=== PATIENT | female | born 1950 | race Caucasian/White ===

== ENCOUNTER → 2020-01-02 10:29 | Outpatient (CLI) | payer MEDICARE, SELFPAY ==
--- NOTE | 2020-01-02 | MR_ITS ---
PROCEDURE: MR LUMBAR SPINE WO CON CLINICAL INDICATION: SPINAL STENOSIS Bilateral hip and leg pain worse on the left COMPARISON: No exams were available for comparison TECHNIQUE: Standard multiplanar multiecho sequences are performed without contrast. 3-D MIP and myelographic images are also rendered and reviewed FINDINGS: There is normal alignment. There is mild lumbar scoliosis convex left. Spinal cord ends at the L1 level. T11-T12: Mild degenerative disc disease. T12-L1: Unremarkable L1-L2: Mild degenerative disc disease. L2-L3: Mild degenerative disc disease with minimal bulging disc. L3-L4: Mild degenerative disc disease with minimal bulging disc along with facet ligamentum hypertrophy with mild bilateral lateral recess and foraminal narrowing. L4-5: Bulging disc with moderate facet ligamentum hypertrophy with moderate bilateral lateral recess narrowing and mild right and qtlm-ze-zrheruys left foraminal narrowing. 2 mm anterolisthesis of L4. There is canal stenosis at this level. L5-S1: Degenerative disc disease with mild bulging disc along with moderate facet and ligamentum hypertrophy. There is moderate to severe left-sided foraminal narrowing and wzwk-es-uhgnzgmi right foraminal narrowing. There is transverse narrowing of the canal with the canal measuring 8 mm in width. No extruded herniated disc evident. IMPRESSION: Multilevel lumbar spondylosis with bulging disc and facet and ligamentum hypertrophy with lateral recess and foraminal narrowing as well as narrowing of the canal at L4-5 and L5-S1. Please see above for detailed description at each level. Dictated by: Vikas Newman MD 01/04/2020 08:59 Vikas Newman MD in [place] 01/04/2020 09:00
== END ==
PROVIDERS: PCP Family Medicine; Visit Provider Family Medicine
DX: M48.062 Spinal stenosis, lumbar region with neurogenic claudication (principal)
CPT/HCPCS: 72148; 76376

== ENCOUNTER → 2020-01-31 10:19 | Outpatient (POV) | payer MEDICARE, SELFPAY ==
[2020-01-31 10:46] VITALS: BP 125/88; PULSE 74; RESP 18; TEMP 36.8; O2SAT 98; BMI 26.2
--- NOTE | 2020-01-31 11:19 | HMH.PMCON ---
Assessment and Plan (1) Degenerative joint disease (DJD) of lumbar spine Status: Chronic Category: Medical Code(s): M47.816 - Spondylosis without myelopathy or radiculopathy, lumbar region (2) Lumbar radiculopathy Status: Chronic Category: Medical Code(s): M54.16 - Radiculopathy, lumbar region (3) Spinal stenosis Status: Chronic Category: Medical Code(s): M48.00 - Spinal stenosis, site unspecified (4) Neurogenic claudication Status: Chronic Category: Medical Code(s): M48.062 - Spinal stenosis, lumbar region with neurogenic claudication - Assessment and plan all Dx Assessment and Plan for all problems:: We will schedule the patient for a lumbar epidural steroid injection at L4-L5. She is on Plavix therapy prescribed per Dr. Jaime. We will seek approval for her to hold her Plavix. Patient may be a candidate for the mild procedure. She does have spinal stenosis with neurogenic claudication symptoms. We will also perform a epidurogram at the time of her epidural steroid injection. We will see her back afterwards to reassess her symptoms. Risks and benefits of the procedure have been explained to the patient. Patient would like to proceed with the procedure. She has been instructed to contact clinic if she has any concerns before next appointment. The patient and I specifically discussed risk factors for COVID19. These risks include, but are not limited to age greater than 60, heart or lung disease, diabetes, immunosuppression, and travel. We also discussed NSAIDs may worsen COVID19 infection or symptoms. Patient should not use NSAIDs to treat COVID19 signs or symptoms. Patient was also informed that any type of corticosteroid of any form (oral or injection) will decrease the patient's immune system response and may increase the likelihood of COVID19 infection [address] symptoms[address]. Barcenas has reviewed this note and agrees with this plan of care. This note was dictated using voice recognition software and make contain errors or omissions. HPI - Data of Consult Patient: new to practice Consult date: 01/31/20 Requesting Physician: Amanda Juarez APRN Primary Care Provider: Star Molina MD - Consult Narrative Reason for consult: Low back pain, bilateral leg pain History of present illness: Ms. Villasenor is a 69 year old female who presents today for consultation for chronic low back pain with bilateral lower extremity pain. Patient says she has had this pain for many years. She says that many years ago she was told that she had a fractured coccyx. She says that she has had difficulty sitting for many years. She says her pain, however, is now starting to worsen into her lower extremities. Patient is having numbness and tingling in her lower extremities as well. She says that she has a left foot drop at times to the point she is unable to lift her leg. She is having balance issues along with falls. Patient says that the pain starts in her low back with radiation into her legs. She says that leaning forward does not always give her relief, however. She does have recent imaging of her lumbar spine. She is also on Plavix for a history of 2 cardiac stents approximately 3 years ago. Patient says she has tried physical therapy and did not get any relief. She is unable to take anti-inflammatories because of her anticoagulation therapy. She does continue with home stretching program. Patient has had injections many years ago that did give her short-term relief but she is not sure what type of injection she received. She rates her pain a 6 out of 10. Patient's pain is worse when she is standing and walking or with any type of movement. CC: Amanda Juarez APRN [facility] History I have reviewed the patient's past medical history: Yes Medical History: Reports:: Myocardial Infarction Denies:: Cancer, Diabetes Mellitus Type 1, Diabetes Mellitus Type 2, MRSA *Have you ever received a pneumonia vaccine?:
--- NOTE | 2020-02-05 12:35 | PC.NURSE ---
PT WAS NOTIFIED OF PERMISSION OBTAINED FROM DR PEREZ TO HOLD PLAVIX PRIOR TO INJECTIONS. PT WAS INTSTRUCTED TO STOP HER PLAVIX Feb PRIOR TO HER LESI ON Feb. PT V/U.
== END ==
PROVIDERS: PCP Family Medicine; Visit Provider Clinical Nurse Specialist Family Health
DX: M47.896 Other spondylosis, lumbar region (principal); M54.16 Radiculopathy, lumbar region; M48.062 Spinal stenosis, lumbar region with neurogenic claudication
CPT/HCPCS: 99202

== ENCOUNTER 2020-02-15 10:25 | Day surgery (SDC) | payer MEDICARE, SELFPAY ==
[2020-02-15 11:42] VITALS: BP 179/72; PULSE 62; RESP 18; TEMP 36.3; O2SAT 98; BMI 26.2
[2020-02-15 12:10] VITALS: BP 133/85; PULSE 85; RESP 18; O2SAT 98
[2020-02-15 12:12] VITALS: BP 135/85; PULSE 89; RESP 18; O2SAT 98
--- NOTE | 2020-02-15 12:14 | P.PCN_ITS ---
- Procedure Date: 02/15/20 Time: 12:14 Anesthesiologist:: Sylvester Barcenas MD Complications:: None Pre-procedure Diagnosis:: Interim disc disease of lumbar spine with lumbar radiculopathy symptoms with spinal stenosis and neurogenic claudication symptoms Post-procedure Diagnosis:: Same Indications for Procedure:: This patient is a pleasant 69-year-old white female who we are treating for low back pain with lumbar radiculopathy symptoms and lumbar spinal stenosis with neurogenic claudication symptoms. She has significant ligamentum flavum hypertrophy at L3-L4 and L4-L5. This is based on MRI. We will do a lumbar epidural steroid injection with epidurogram to assess levels of stenosis and candidacy for minimally invasive lumbar decompression. Procedure Details:: Lumbar epidural steroid injection under fluoroscopy Informed consent was obtained and the risk and benefits of the procedure was explained to the patient. The patient was taken to the procedure room. The patient was placed prone on the procedure table. The patient was prepped and draped in sterile fashion. C-arm fluoroscopy was used to view the lumbar spine. Skin and subcutaneous tissues were anesthetized using lidocaine. I placed an 18-gauge epidural needle and advanced into the L4-L5 interspace using fluoroscopic guidance and [id number] to air. After confirmation of nee dle placement in the epidural space with dye I injected 2 mL of lidocaine 1.5% with Depo-Medrol 80 mg. Patient tolerated the procedure well with no complications. Plan and Disposition:: Stone epidurogram she does have significant stenosis at L3-L4 and L4-L5 bilaterally. We will plan on minimally invasive lumbar decompression at L3-L4 and L4-5 bilaterally. She will need to be off of her Plavix for at least 7 days prior to this procedure.
[2020-02-15 12:26] VITALS: BP 179/79; PULSE 62; RESP 18; O2SAT 98
--- NOTE | 2020-02-15 16:04 | PC.NURSE ---
LATE ENTRY: 1220 CALLED MD BACK TO PROCEDURE ROOM TO ASSESS PT. PT C/O DIZZINESS, HEADACHE, AND NAUSEA. PT WAS VISIBLY SWEATING AND UPSET. VS 157/91, HR 88, 98% 02. ORDERS FOR 1 LITER LACTATED RINGERS, 4MG ZOFRAN IV, AND FIORICET TO BE GIVEN NOW.R/V.
== END 2020-02-15 12:28 | disposition home or self-care (01) ==
LOC: SC.PAINP 10:27
PROVIDERS: PCP Family Medicine; Visit Provider Anesthesiology
DX: M51.16 Intervertebral disc disorders with radiculopathy, lumbar region (principal); M48.062 Spinal stenosis, lumbar region with neurogenic claudication; I10 Essential (primary) hypertension; I25.2 Old myocardial infarction; E03.9 Hypothyroidism, unspecified; Z88.8 Allergy status to other drugs, medicaments and biological substances; Z79.899 Other long term (current) drug therapy
CPT/HCPCS: 62323; J1040; Q9966

== ENCOUNTER → 2022-02-26 01:00 | Outpatient (CLI) | payer MEDICARE, SELFPAY ==
[2022-02-26 18:42] LABS: Basophils # 0.1 K/mm3 (0-0.2); Basophils % 0.5 % (0.1-2.0); Eosinophils % 0.3 % (0.1-12.0); Hematocrit 42.4 % (37.0-47.0); Hemoglobin 14.3 g/dL (12.2-16.2); Lymphocytes # 3.5 K/mm3 (0.7-4.5); Lymphocytes % 29.2 % (10-50); Mean Corpuscular HGB Conc 33.7 g/dL (31.8-35.4); Mean Corpuscular Hemoglobin 32.3 pg (27.0-31.2); Mean Corpuscular Volume 95.9 fl (81-99); Mean Platelet Volume 9.7 fl (7.4-10.4); Monocytes # 0.7 K/mm3 (0.1-1.0); Neutrophils # 7.6 K/mm3 (1.8-7.8); Platelet Count 405 K/mm3 (142-424); Red Blood Count 4.42 M/mm3 (4.20-5.40); Red Cell Distribution Width 14.4 % (11.5-17.5); White Blood Count 11.8 K/mm3 (4.8-10.8)
[2022-02-26 19:04] LABS: Alanine Aminotransferase 26 U/L (12-78); Albumin Level 4.1 g/dl (3.5-5.0); Albumin/Globulin Ratio 1.7 (1.1-1.8); Alkaline Phosphatase 103 U/L (38-126); Aspartate Amino Transferase 26 U/L (14-36); Bilirubin,Total 0.7 mg/dl (0.2-1.3); Blood Urea Nitrogen 15 mg/dl (7-17); Calcium 9.1 mg/dl (8.4-10.2); Carbon Dioxide 29 mmol/L (22.0-30.0); Chloride 108 mmol/L (98-107); Estimated Glomerular Filt Rate 61 ml/min (>60); GFR (African American) 74 ML/MIN (>60); Globulin 2.4 g/dL (1.3-3.2); Glucose 94 mg/dl (74-100); Sodium 144 mmol/L (136-145); Total Protein,Serum 6.5 g/dl (6.3-8.2)
[2022-02-26 19:33] LABS: Thyroid Stimulating Hormone < 0.02 uIU/mL (0.465-4.68)
== END ==
PROVIDERS: PCP Family Medicine; Visit Provider Family Medicine
DX: E03.9 Hypothyroidism, unspecified (principal); M47.816 Spondylosis without myelopathy or radiculopathy, lumbar region; H65.00 Acute serous otitis media, unspecified ear
CPT/HCPCS: 80053; 84443; 85025

== ENCOUNTER 2023-04-12 18:55 | Outpatient (CLI) | payer MEDICARE, SELFPAY ==
[2023-04-12 17:49] LABS: Basophils # 0.1 K/mm3 (0-0.2); Basophils % 0.6 % (0.1-2.0); Eosinophils # 0.1 K/mm3 (0.0-0.4); Eosinophils % 0.7 % (0.1-12.0); Hematocrit 49.7 % (37.0-47.0); Hemoglobin 16.1 g/dL (12.2-16.2); Lymphocytes # 3.4 K/mm3 (0.7-4.5); Mean Corpuscular HGB Conc 32.4 g/dL (31.8-35.4); Mean Corpuscular Hemoglobin 33.8 pg (27.0-31.2); Mean Corpuscular Volume 104.3 fl (81-99); Mean Platelet Volume 8.2 fl (7.4-10.4); Monocytes # 0.5 K/mm3 (0.1-1.0); Monocytes % 5.9 % (1.7-9.3); Neutrophils # 5.1 K/mm3 (1.8-7.8); Neutrophils % 55.9 % (37.0-80.0); Platelet Count 282 K/mm3 (142-424); Red Blood Count 4.76 M/mm3 (4.20-5.40); Red Cell Distribution Width 15.3 % (11.5-17.5); White Blood Count 9.2 K/mm3 (4.8-10.8)
[2023-04-12 17:54] LABS: Alanine Aminotransferase 19 U/L (12-78); Albumin Level 4.2 g/dl (3.5-5.0); Albumin/Globulin Ratio 1.6 (1.1-1.8); Alkaline Phosphatase 115 U/L (38-126); Anion Gap 10.1 mEq/L (5-15); Aspartate Amino Transferase 25 U/L (14-36); Bilirubin,Total 0.5 mg/dl (0.2-1.3); Blood Urea Nitrogen 10 mg/dl (7-17); Calcium 9.3 mg/dl (8.4-10.2); Carbon Dioxide 26 mmol/L (22.0-30.0); Chloride 107 mmol/L (98-107); Estimated Glomerular Filt Rate 61 ml/min (>60); GFR (African American) 74 ML/MIN (>60); Globulin 2.6 g/dL (1.3-3.2); Glucose 99 mg/dl (74-100); Potassium 4.1 mmoL/L (3.5-5.1); Sodium 139 mmol/L (136-145); Total Protein,Serum 6.8 g/dl (6.3-8.2)
[2023-04-12 18:24] LABS: Thyroid Stimulating Hormone 7.72 uIU/mL (0.465-4.68)
[2023-04-12 18:43] LABS: Vitamin B12 365 pg/mL (239-931)
== END 2023-04-12 23:59 ==
LOC: LAB.DROPOF 18:55
PROVIDERS: PCP Family Medicine; Visit Provider Family Medicine
DX: I10 Essential (primary) hypertension; J31.0 Chronic rhinitis; R53.83 Other fatigue; E03.8 Other specified hypothyroidism; Z79.899 Other long term (current) drug therapy
CPT/HCPCS: 80053; 82607; 84443; 85025

== ENCOUNTER 2023-08-30 11:36 | Outpatient (CLI) | payer MEDICARE, SELFPAY ==
[2023-08-30 18:36] LABS: Chloride 104 mmol/L (98-107); Sodium 136 mmol/L (136-145)
[2023-08-30 18:37] LABS: Potassium 4.1 mmoL/L (3.5-5.1)
[2023-08-30 18:39] LABS: Blood Urea Nitrogen 11 mg/dl (7-17); Estimated Glomerular Filt Rate 61 ml/min (>60); GFR (African American) 74 ML/MIN (>60)
[2023-08-30 18:40] LABS: Anion Gap 10.1 mEq/L (5-15); Calcium 9.1 mg/dl (8.4-10.2); Carbon Dioxide 26 mmol/L (22.0-30.0); Glucose 94 mg/dl (74-100)
[2023-08-30 19:08] LABS: Thyroid Stimulating Hormone 2.52 uIU/mL (0.465-4.68)
== END 2023-08-30 23:59 | disposition home or self-care (01) ==
LOC: LAB.DROPOF 08-31 11:37
PROVIDERS: PCP Family Medicine; Visit Provider Family Medicine
DX: E03.9 Hypothyroidism, unspecified (principal); I10 Essential (primary) hypertension; R30.0 Dysuria; F17.210 Nicotine dependence, cigarettes, uncomplicated
CPT/HCPCS: 80048; 84443; 87086

== ENCOUNTER 2024-03-05 16:38 | Outpatient (CLI) | payer MEDICARE, SELFPAY ==
[2024-03-05 16:01] LABS: Microscopic,Cath URINE MICROSCOPIC (MICROSCOPIC)
[2024-03-05 16:47] LABS: Appearance,Urine/Cath SL CLOUDY (Clear); Bilirubin,Cath Negative (Negative); Blood, Urine/Cath TRACE-I (Negative); Color,Urine/Cath YELLOW (Yellow); Glucose,Urine/Cath (UA) Negative (Negative); Ketones,Urine/Cath Negative (Negative); Leukocyte Esterase,Cath 3+ (Negative); Nitrate,Cath Negative (Negative); Protein,Urine/Cath Negative (Negative); Urobilinogen,Cath 0.2 EU/dl (0.2)
[2024-03-05 17:58] LABS: Bacteria,Urine/Cath 2+ /lpf; WBC,Urine/Cath 20-50 #/hpf (0-3)
== END 2024-03-05 23:59 | disposition home or self-care (01) ==
LOC: LAB.DROPOF 16:38
PROVIDERS: PCP Urology; Visit Provider Urology
DX: N39.0 Urinary tract infection, site not specified (principal); N95.2 Postmenopausal atrophic vaginitis
CPT/HCPCS: 81001; 87086; 87088; 87186; 87801

== ENCOUNTER 2024-08-14 12:00 | Outpatient (CLI) | payer MEDICARE, SELFPAY ==
[2024-08-14 20:28] LABS: Alanine Aminotransferase 12 U/L (12-78); Albumin Level 4.4 g/dl (3.5-5.0); Albumin/Globulin Ratio 1.6 (1.1-1.8); Alkaline Phosphatase 99 U/L (38-126); Anion Gap 16.2 mEq/L (5-15); Aspartate Amino Transferase 22 U/L (14-36); Bilirubin,Total 0.5 mg/dl (0.2-1.3); Blood Urea Nitrogen 18 mg/dl (7-17); Calcium 9.6 mg/dl (8.4-10.2); Carbon Dioxide 26 mmol/L (22.0-30.0); Chloride 99 mmol/L (98-107); Cholesterol 175 mg/dl (140-200); Creatinine,Serum 1.10 mg/dl (0.52-1.04); Estimated Glomerular Filt Rate 48 ml/min (>60); GFR (African American) 59 ML/MIN (>60); Globulin 2.8 g/dL (1.3-3.2); Glucose 97 mg/dl (74-100); HDL Cholesterol 35 mg/dl (40-60); Potassium 4.2 mmoL/L (3.5-5.1); Sodium 137 mmol/L (136-145); Total Protein,Serum 7.2 g/dl (6.3-8.2); Triglycerides 144 mg/dl (30-150)
[2024-08-14 21:01] LABS: Thyroid Stimulating Hormone 2.73 uIU/mL (0.465-4.68)
--- OUTSIDE RECORDS SUMMARY | 2024-08-15 10:18 | XMS_ITS | Clinical Summary ---
Author Organization [facility] Address [address] [place] [address] Phone Care Team Providers Care Drop Board Man Name Role Phone Chas Garcia MD Unavailable [phone] Kita Molina Primary Care Provider [phone] Allergies Active Allergy Reactions Criticality Noted Date Comments Hymenoptera Allergenic Extract Anaphylaxis High 08/18/2013 Isosorbide Mononitrate Other (See Comments) Low REICH Cephalexin Itching Medium 12/15/2011 Prednisone Other (See Comments) Low 02/18/2013 Cannot recall reaction Medications nitroGLYCERIN (NITROSTAT) 0.[address] 1 Tab under the tongue every 5 minutes as needed for Chest pain for 3 doses. 50 Tab 1 4 Active omeprazole (PRILOSEC) 20 mg Take 20 mg by mouth daily. Active POTASSIUM CHLORIDE ORAL Take 10 mEq by mouth daily. Active metoprolol succinate (TOPROL-XL) 25 mg Oral Tablet Sustained Release 24 hr Take 0.5 Tabs by mouth daily. 45 Tab 2 8 Active lisinopril-hydr ochlorothiazide (PRINZIDE;ZESTO RETIC) 20-12.5 mg Oral Tablet Take 1 Tab by mouth daily. 90 Tab 2 8 Active clopidogrel (PLAVIX) 75 mg Oral Tablet Take 1 Tab by mouth daily. 90 Tab 2 8 Active amLODIPine (NORVASC) 5 mg Oral Tablet Take 1 Tab by mouth daily. 90 Tab 2 8 Active LEVOthyroxine (SYNTHROID) 137 mcg Oral Tablet Take 125 mcg by mouth daily mold mechanic. Active alendronate (FOSAMAX) 10 mg Oral Tablet Take 10 mg by mouth daily. Active ALPRAZolam (XANAX) 1 mg Oral Tablet Take 1 mg by mouth 2 times daily as needed. Active atorvastatin (LIPITOR) 80 mg Oral Tablet Take 80 mg by mouth nightly. Active oxyCODONE (ROXICODONE) 5 mg Oral Tablet Take 1 Tablet by mouth every 6 hours as needed for Acute Pain (R52). 12 Tablet 1 Active Additional Information Patient not taking.Reason: Other, Reported on 03/02/2021 gabapentin (NEURONTIN) 100 mg Oral Capsule Take 1 Capsule by mouth 3 times daily. 90 Capsule 1 Active Additional Information Patient not taking.Reason: Other, Reported on 03/02/2021 cephALEXin (KEFLEX) 500 mg Oral Capsule 1 Active Calcium Carbonate-Vitam in D3 (CALCIUM 600 + D,3,) 600 mg-10 mcg (400 unit) Oral Tablet Take 600 mg by mouth. Active Cholecalciferol , Vitamin D3, (VITAMIN D3) 50 mcg (2,000 unit) Oral Capsule Take 2,000 Units by mouth. Active Active Problems Problem Noted Date Diagnosed Date Cigarette nicotine dependenc e with nicotine-induced disorder 03/02/2021 Ischemia of toe 01/21/2021 Other chest pain 09/06/2018 Hypothyroidism 09/24/2017 Pericardial effusion without cardiac tamponade 0 09/23/2017 Hyperlipidemia 07/16/2013 Carotid artery stenosis 03/02/2013 Overview (03/02/2013): 60-79 % on left on 03/01/13 Hypertension 03/01/2013 ASHD (arteriosclerotic heart disease) 03/01/2013 Atherosclerosis of [place] ar teries of extremities with rest pain, bilateral legs 03/01/2013 Bradycardia 03/01/2013 Non-ST elevation [place] (NSTEMI) 02/18/2013 Claudication of right lower extremity 02/18/2013 Tobacco abuse 02/18/2013 Resolved Problems Problem Noted Date Diagnosed Date Resolved Date Acute chest pain 10/01/2014 01/20/2017 Immunizations Immunization Administration Dates Next Due Influenza Vaccine, Unspecified Formulation 01/24 Pneumococcal Conjugate Vaccine 13 Valent 014 Pneumococcal Polysaccharide 23 Valent 02/23/2013 Surgical History Surgery Date Site/Laterality Comments HYSTERECTOMY CHOLECYSTECTOMY CARDIAC CATHETERIZATION CARDIAC SURGERY 02/18/13 stent placement BREAST SURGERY Bilateral cyst removed APPENDECTOMY IR ANGIOGRAM FEMORAL ARTERIO SHIFT 01/23/2021 IR ANGIOGRAM FEMORAL ARTERIO SHIFT 01/23/2021 Muary Kiran, DO [facility] IR IR ULTRASOUND GUIDED VASCULA R ACCESS 01/23/2021 IR ULTRASOUND GUIDED VASCULAR ACCESS 01/23/2021 Maury Kiran, [facility] IR IR ABDOMINAL AORTOGRAM SERIALOGRAM 01/23/2021 IR ABDOMINAL AORTOGRAM SERIALOGRAM 01/23/2021 Maury Kiran, DO [facility] IR Medical History Medical History Date Comments Crohn's disease (HCC) Hypothyroidism [place] (myocardial infarction) ([facility] 2013 2 stents placed Hypertension CAD (coronary artery disease) 02/18/2013 Heartburn Headache(784.0) 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 Carotid artery stenosis 03/02/2013 60-79 % on left on 03/01/13 Tobacco abuse 02/18/2013 PAD (peripheral artery disease) 03/01/2013 Claudication of right lower extremity 02/18/2013 Hyperlipidemia 07/16/2013 Family History Medical History Relation Name Comments Heart Attack Brother Heart Disease Brother Cancer Father Early Mother Tuberculosis Mother Heart Attack Sister 1 Heart Disease Sister 1 Heart Attack Sister 2 Heart Disease Sister 2 Relation Name Status Comments Brother Father Mother Sister 1 Sister 2 Alive Social History Tobacco Use Types Packs/Day Years Used Date Smoking Tobacco: Every Day Cigarettes 1.5 51.5 Started: 02/07/1973 Smokeless Tobacco: Never Tobacco Cessation:Ready to Q uit: Yes; Counseling Given: Yes Comments:last attempt to quit 02/18/13 Alcohol Use Standard Drinks/Week Comments No 0 (1 standard drink = 0.6 oz pur e alcohol) Comments No Sex and Gender Information Value Date Recorded Sex Assigned at Not on file Legal Sex Female 1:40 PM EDT Gender Identity Not on file Sexual Orientation Not on file Obstetrics History Last Filed Vital Signs Vital Sign Reading Time Taken Comments Blood Pressure 118/62 03/02/2021 1:30 PM EST Pulse 76 01/24/2021 11:36 AM EST Temperature 36.9 C (98.4 F) 01/24/2021 9:34 AM EST Respiratory Rate 16 01/24/2021 11:36 AM EST Oxygen Saturation 97% 01/24/2021 11:36 AM EST Inhaled Oxygen Concentration - - Weight 61.8 kg (136 lb 3.2 oz) 03/02/2021 1:20 P M EST Height 152.4 cm (5') 03/02/2021 1:20 PM EST Body Mass Index 26.6 03/02/2021 1:20 PM EST Plan of Treatment Health Maintenance Due Date Last Done Comments Wellness Exam Medicare 09/21/1953 Hepatitis C Screening 1966 DTaP/TDaP/Td (1 - Tdap) 09/21/1967 Cologuard 1993 FIT 1993 Sigmoidoscopy 1993 Virtual Colonography 1993 Zoster (1 of 2) 1998 Colon Cancer Screening 02/27/2016 Colonoscopy 02/27/2016 02/26/2014 Low Dose Lung Cancer Screening 09/23/2018 09/23/2017, 11/23/2016 RSV or 60+ (1 - 1-dose 75+ series) 09/21/2023 COVID-19 Vaccine ( season) 2023 03/18/2020, 02/19/2020 Influenza Vaccine (#1) 2024 0, 11/15/2018, 12/20/2017, Additional history exists Bone Density Screening Completed 07/12/2019 Pneumococcal Vaccine 50+ Completed 020, 2013, 02/23/2013 Hepatitis B Vaccine Aged Out No longe r eligible based on patient's age to complete this topic Meningococcal B Vaccine Aged Out No l onger eligible based on patient's age to complete this topic Medical Devices Implanted Type Area Block Hand Device Identifier Shelf Expiration Date Model / Serial / Lot Stent Omnilink Elite 7.0mm X 59mm Catheter Length 80cm - [id number] Implanted:Qty : 1 on 04/05/2013 by Chas Garcia MD at [employer] Explanted:at [employer] (Quantity not on file) Stent-Om nilink [facility] LAB:VASC DEV [id number] / / [id number] Stent Omnilink Elite 7.0mm X 59mm Catheter Length 80cm - [id number] Implanted:Qty : 1 on 04/05/2013 by Cahs Garcia MD at [employer] Explanted:at [employer] (Quantity not on file) Stent-Om nilink [facility] LAB:VASC DEV [id number] / / [id number] Stent Xience Xpedition Drug Eluting 3.0 X 12 - [id number] Implanted:Qty : 1 on 02/18/2013 by Chas Garcia MD at [facility] [employer] Explanted:at [facility] [employer] (Quantity not on file) Stent-Xp edition [facility] LAB:VASC DEV [id number] / / [id number] Stent Xience Xpedition Drug Eluting 3.0 X 38 - [id number] Implanted:Qty : 1 on 02/18/2013 by Chas Garcia MD at [facility] [employer] Explanted:at [employer] (Quantity not on file) Stent-Xp edition NY[facility] LAB:VASC DEV [id number] / / [id number] Stent Vasc 6mm 40mm 80cm Slf Xpd Otw Carito Abst Pro- 1 Implanted:Qty : 1 on 01/23/2021 by Maury Kiran DO Right: Iliac Artery [facility] LAB:VASC DEV [id number] / / [id number] Procedures Procedure Name Priority Date/Time Associated Diagnosis Comments DX BONE DENSITY AXIAL SKELETON Routine 07/12/2019 1:05 PM EDT Post-menopausal CT CHEST WO CONTRAST STAT 09/23/2017 5:19 PM EDT from Last 3 Months or Most Recently Relevant to Health Maintenance Results * DX BONE DENSITY AXIAL SKELETON (07/12/2019 1:05 PM EDT) Anatomical Region Laterality Modality Dexa Scan 07/12/2019 Narrative 07/12/2019 1:50 PM EDT Indication: The patient is a female age 65 or older who requires a bone density assessment. Study was performed on Horizon APEX 5. Bone Density: Region BMD T-score Z-score AP Spine (L1, L2, L3) 0.937 -0.7 1.4 Femoral Neck (Left) 0.593 -2.3 -0.5 Total Hip (Left) 0.859 -0.7 0.9 Femoral Neck (Right) 0.528 -2.9 -1.0 Total Hip (Right) 0.817 -1.0 0.5 1/3 Radius (Left) 0.643 -0.8 1.3 World Health Organization criteria for BMD interpretation classify patients as: Normal (T-score at or above -1.0), Low Bone Density (T-score between -1.0 and -2.5), or Osteoporotic (T-score at or below -2.5). T Scores are reported in Postmenopausal women and in men age 50 and older. Z-scores are reported in females prior to menopause and in males younger than age 50. 10-year Fracture Risk: FRAX not reported because: Some T-score for Spine Total or Hip Total or Femoral Neck at or below -2.5 Vertebral Deformity Assessment: Exam date 07/12/2019 Vertebral Level Impression T9 Normal T10 Normal T11 Moderate Wedge Deformity T12 Normal L1 Normal L2 Normal L3 Normal L4 Normal A spine fracture indicates 5X risk for subsequent spine fracture and 2X risk for subsequent hip fracture. Clinical Information Provided by Patient: Has taken Glucocorticoids. Has used or is currently using the following medications: Calcium, Vitamin D, Diuretic, Thyroid medication Has had or currently has the following medical conditions: Crohns or Ulcerative Colitis, Back pain, Hip pain Patient maximum height was 60 Menopause Age: 51 Patient is Postmenopausal woman Interpretation: Bone mineral density is in the osteoporotic range. Medical evaluation for secondary causes of low bone density may be appropriate. A minimum of two years may be required between bone density studies due to inherent testing precision limitations. Intervals between BMD testing should be determined according to each patient's clinical status: typically one year after initiation or change of therapy is appropriate, with longer intervals once therapeutic effect is established. The spine portion of the study is limited by visual hypertrophic change with associated vertebra deleted. The vertebral fracture assessment is interpretable from T9 to L4. A single vertebral fracture has been identified. Further evaluation / images may be warranted depending on clinical situation. Note: VFA is designed to detect vertebral fractures and no other abnormalities. Reported by: Ilana John PA-C, CCD on 07/12/2019 1:08:00 PM. Kita Jose Molina IMG DEXA ORDERABLES Final Resul t * CT CHEST WO CONTRAST (09/23/2017 5:19 PM EDT) Anatomical Region Laterality Modality Chest Computed Tomogra phy 09/23/2017 5:19 PM EDT Impressions 09/23/2017 5:43 PM EDT Mild opacity again noted in the anterolateral right upper lobe, stable to less apparent now than on prior, most compatible with scarring. Interval development of relatively small amount of pericardial fluid, as described above. Otherwise stable exam. No localized infiltrate, mass, or adenopathy identified. Prominent coronary artery calcifications again noted. Narrative 09/23/2017 5:[address] CHEST WITHOUT CONTRAST, 09/23/2017 5:19 PM CLINICAL HISTORY: -cough, congestion, not improving with antibiotics COMPARISON: None. PROCEDURE COMMENTS: Multi-detector CT of the chest with multiplanar reconstructions per protocol. No contrast given. Automated exposure control for dose reduction was used. CTDIvol: 4.5 mGy. DLP: 165 mGy-cm. FINDINGS: 1. There is very mild patchy/nodular opacity in the anterolateral right upper lobe, which is actually less apparent than on prior, and likely represents atelectasis or scarring. Stable linear areas of atelectasis or scar in the posterior right upper lobe, in association with small metallic or calcific densities. Small calcified left upper lobe granuloma again identified. No localized infiltrates or pleural fluid. No suspicious pulmonary nodules or masses. 2. No endobronchial lesions. No mediastinal or hilar mass or adenopathy. Prominent coronary artery calcifications are again noted. There has been interval development of pericardial fluid, measuring 1 cm in thickness anteriorly and 1.6 cm in greatest thickness inferiorly on the right. Atherosclerotic calcifications are noted in the thoracic and abdominal aorta. Included upper abdomen demonstrates evidence of prior cholecystectomy but is otherwise unremarkable. There are moderate degenerative changes present in mid/lower thoracic spine. Procedure Note Kd Rascon MD - 09/23/2017 CT CHEST WITHOUT CONTRAST, 09/23/2017 5:19 PM CLINICAL HISTORY: -cough, congestion, not improving with antibiotics COMPARISON: None. PROCEDURE COMMENTS: Multi-detector CT of the chest with multiplanar reconstructions per protocol. No contrast given. Automated exposurecontrol for dose reduction was used. CTDIvol: 4.5 mGy. DLP: 165 mGy-cm. FINDINGS: 1. There is very mild patchy/nodular opacity in the anterolateral rightupper lobe, which is actually less apparent than on prior, and likelyrepresents atelectasis or scarring. Stable linear areas of atelectasis or scar inthe posterior right upper lobe, in association with small metallic orcalcific densities. Small calcified left upper lobe granuloma again identified.No localized infiltrates or pleural fluid. No suspicious pulmonary nodulesor masses. 2. No endobronchial lesions. No mediastinal or hilar mass or adenopathy. Prominent coronary artery calcifications are again noted. There has been interval development of pericardial fluid, measuring 1 cm in thickness anteriorly and 1.6 cm in greatest thickness inferiorly on the right. Atherosclerotic calcifications are noted in the thoracic and abdominalaorta. Included upper abdomen demonstrates evidence of prior cholecystectomy butis otherwise unremarkable. There are moderate degenerative changes presentin mid/lower thoracic spine. IMPRESSION: Mild opacity again noted in the anterolateral right upper lobe, stable to less apparent now than on prior, most compatible withscarring. Interval development of relatively small amount of pericardial fluid, as described above. Otherwise stable exam. No localized infiltrate, mass,or adenopathy identified. Prominent coronary artery calcifications againnoted. Kiana Smith APRN [facility] ORDERABLES Final R esult from Last 3 Months or Most Recently Relevant to Health Maintenance Insurance [facility] MEDICARE PPO MR HUMAN MEDICARE PPO MR HUMAN MEDICARE PPO MR Advance Directives For more information, please contact: [phone] * DNR (Latest Code Status on File) Date Activated Date Inactivated Comments 01/21/2021 2:40 PM 01/24/2021 7:25 PM Question Answer Comments This treatment plan has been discussed with and agreed upon by: patient * Full Code Date Activated Date Inactivated Comments 09/23/2017 8:07 PM 09/24/2017 7:39 PM * Full Code Date Activated Date Inactivated Comments 10/01/2014 9:15 AM 10/01/2014 8:24 PM Care Teams Drop Board Man Relationship Specialty Start Date End Date Kita Molina [address] [place] [address] [address] [place] [place] [address] PCP - General Family Medicine 02/09/21 Chas Garcia MD [address] [place] [address] [place] [address] Physician Internal Medicine-Cardiovascular Disease 04/02/13
== END 2024-08-14 23:59 | disposition home or self-care (01) ==
LOC: LAB.DROPOF 08-15 10:09
PROVIDERS: PCP Family Medicine; Visit Provider Family Medicine
DX: I25.10 Atherosclerotic heart disease of native coronary artery without angina pectoris (principal); E03.9 Hypothyroidism, unspecified
CPT/HCPCS: 80053; 80061; 84443

== ENCOUNTER 2024-08-22 12:19 | Outpatient (CLI) | payer MEDICARE, SELFPAY ==
--- NOTE | 2024-08-22 13:00 | CA_ITS ---
APPROVED REPORT EXAM: Comprehensive 2D, Doppler, and color-flow Echocardiogram Power Plant Operator: Rubi Moon RT(R) Ht: 5 ft 0 in Wt: 118lbs BSA: 1.49 BP: 124/52 mmHg Indications: ASCVD, smoker, HTN, hyperlipidemia 2D Dimensions Aortic Root 1.95 cm F: 2.7 - 3.3 LVEF (Hraris's) 60.20 % F: 54 - 74 Left Atrium 3.26 cm F: 2.7 - 3.8 LV Volume 48.70 mL F: 46 - 106 LV Volume Index 32.7 mL/m2 F: 29 - 61 LA Volume 20.30 mL LA Volume Index 13.62 mL/m2 (M/F) 16-34 EF AP4 68.30 % EF AP2 44.7 % EF BP 60.2 % GL Strain -21.6 % M-Mode Dimensions RVDd 2.31 cm (0.9-2.6) LVDd 3.49 cm (3.5-5.7) Ao Diam 2.35 cm (2.0-3.7) LVDs 2.38 cm (3.5-5.7) IVSd 0.94 cm (0.6-1.1) PWd 0.97 cm (0.6-1.1) EF (Teich) 61.00% FS 31.80% EDV (Teich) 50.50 mL ESV (Teich) 19.70 mL LV Diastology E Decel Time 189 (160-240 msec) E/A Ratio 0.9 MED E' 6.0 (>= 7 cm/sec) E'/MED E' Ratio 12.95 (<= 14) LAT E' 9.3 (>= 10 cm/sec) E/LAT E' Ratio 8.35 (<= 14) Aortic Valve LVOT Max 107.0 (70-110 cm/s) LVOT VTI 26.48 cm AoV Peak Bahman. 162.0 (50-130 cm/s) AO Mean GR. 5.20 (<5 mmHg) AO VTI 38.0 (18-25 cm) Mitral Valve MV E Max Bahman. 78.0 (40-130 cm/s) MV A Velocity 90.0 (40-130 cm/s) E/A Ratio 0.86 MV Decel. Time 189 (160-240 ms) Left Ventricle The left ventricle is normal size. The left ventricular systolic function is normal. The left ventricular ejection fraction is within the normal range. There is increased LV wall thickness. There is normal LV segmental wall motion. Transmitral Doppler flow pattern suggests impaired LV relaxation. LVEF is 55%. Right Ventricle Right ventricle is mildly dilated. The right ventricular systolic function is normal. Atria Left atrium is mildly dilated. The right atrium is mildly dilated. There is no Doppler evidence of interatrial shunt. Aortic Valve The aortic valve is mildly thickened. There is no aortic valvular stenosis. Trace aortic regurgitation. Mitral Valve The mitral valve is mildly thickened. No evidence of mitral valve stenosis. Trace mitral regurgitation. Tricuspid Valve Tricuspid valve is grossly normal in structure and function. Trace tricuspid regurgitation. There is insufficient TR jet to estimate RVSP. Pulmonic Valve The pulmonary valve is normal in structure. Trace pulmonic regurgitation. Great Vessels The aortic root is normal in size. IVC is normal in size and collapses >50% with inspiration. Pericardium There is no pericardial effusion. Other Information Study Quality: Fair Conclusion Normal LV systolic function. Mild RV dilation with normal RV function. Mild biatrial dilation. No significant valvular stenosis or regurgitation. Electronically signed by : Coni Nicholson MD 08/26/2024 22:36:13
--- NOTE | 2024-08-22 13:45 | CA_ITS ---
FINAL REPORT CLINICAL HISTORY: bruits, CAD, smoker, ASCVD, HTN, fatigue, hyperlipidemia FINDINGS: RIGHT CAROTID: CCA PSV -83 cm/sec ICA PSV -116 cm/sec ICA/CCA PSV ratio -1.4. Comments: Moderate plaque disease is noted. LEFTCAROTID: CCA PSV -81. cm/sec ICA PSV -233. cm/sec ICA/CCA PSV ratio -2.9. Comments: Moderate plaque disease is noted. Antegrade flow is seen within the vertebral arteries. IMPRESSION: Carotid stenosis is classified as 50 - 69% on the left. Recommend CTA for further evaluation. Carotid stenosis is classified as less than 50% on the right. Reviewed, Interpreted and Dictated by Lucius Duenas MD Transcribed by Sandra Montoya Authenticated and [facility]
== END 2024-08-22 23:59 | disposition home or self-care (01) ==
LOC: RT 12:19
PROVIDERS: PCP Family Medicine; Visit Provider Family Medicine
DX: I65.23 Occlusion and stenosis of bilateral carotid arteries (principal); I11.9 Hypertensive heart disease without heart failure; I25.10 Atherosclerotic heart disease of native coronary artery without angina pectoris; F17.200 Nicotine dependence, unspecified, uncomplicated; E78.5 Hyperlipidemia, unspecified
CPT/HCPCS: 93306; 93880

== ENCOUNTER 2024-10-03 10:36 | Outpatient (CLI) | payer MEDICARE, SELFPAY ==
--- OUTSIDE RECORDS SUMMARY | 2024-10-03 10:38 | XMS_ITS | Clinical Summary ---
Author Organization [facility] Address [address] [place] [address] Phone Care Team Providers Care Extension Service Specialist In Charge Name Role Phone Outside, Provider Unavailable [phone] Conditions or Problems No information available. Medications No information available. Medications Administered No information available. Allergies, Adverse Reactions, Alerts No information available. Results No information available. Plan of Care No information available. Procedures No information available. Vital Signs No information available. Immunizations No information available. Advance Directives No information available.
--- OUTSIDE RECORDS SUMMARY | 2024-10-03 10:38 | XMS_ITS | Clinical Summary ---
Author Organization [facility] [employer] [facility] Address [address] [place] [address] Phone Care Team Providers Care Bead Picker Name Role Phone Printer [employer] Unavailable Unavailable Conditions or Problems No information available. Medications No information available. Medications Administered No information available. Allergies, Adverse Reactions, Alerts No information available. Results No information available. Plan of Care No information available. Procedures No information available. Vital Signs No information available. Immunizations No information available. Advance Directives No information available.
--- OUTSIDE RECORDS SUMMARY | 2024-10-03 10:39 | XMS_ITS | Clinical Summary ---
Author Organization 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 Active alendronate (FOSAMAX) 10 mg Oral Tablet [...] ASHD (arteriosclerotic heart disease) 03/01/2013 Atherosclerosis of [place] ar teries of extremities with rest pain, bilateral legs 03/01/2013 Bradycardia 03/01/2013 Non-ST elevation [place] (NSTEMI) 02/18/2013 Claudication of right lower extremity [...] 01/23/2021 IR ANGIOGRAM FEMORAL ARTERIO SHIFT 01/23/2021 Maury Kiran, DO [facility] IR IR ULTRASOUND GUIDED VASCULA R ACCESS 01/23/2021 IR ULTRASOUND GUIDED VASCULAR ACCESS 01/23/2021 Maury Kiran, [facility] IR IR ABDOMINAL AORTOGRAM SERIALOGRAM 01/23/2021 IR ABDOMINAL AORTOGRAM SERIALOGRAM 01/23/2021 Maury Kiran, DO [facility] IR Medical History Medical History Date Comments Crohn's disease (HCC) Hypothyroidism [place] (myocardial infarction) ([facility]) 2013 2 stents placed Hypertension CAD (coronary [...] Date Smoking Tobacco: Every Day Cigarettes 1.5 51.7 Started: 02/07/1973 Smokeless Tobacco: Never Tobacco Cessation:Ready [...] Screening 1966 DTaP/TDaP/Td (1 - Tdap) 09/21/1967 Zoster (1 of 2) 1998 Low Dose Lung Cancer Screening 09/23/2018 09/23/2017, 11/23/2016 RSV or 60+ (1 - 1-dose 75+ series) 09/21/2023 COVID-19 Vaccine ( season) 2023 03/18/2020, 02/19/2020 Influenza Vaccine (#1) 2024 0, 11/15/2018, 12/20/2017, Additional history exists Colon Cancer Screening Discontinued Colonoscopy Discontinued 02/26/2014 Bone Density Screening Completed 07/12/2019 Pneumococcal Vaccine 50+ Completed 020, 2013, 02/23/2013 Cologuard Discontinued FIT Discontinued Hepatitis B Vaccine Aged Out No longe r eligible based on patient's age to complete this topic Meningococcal B Vaccine Aged Out No l onger eligible based on patient's age to complete this topic Sigmoidoscopy Discontinued Virtual Colonography Discontinued Medical Devices Implanted Type Area Rough Rice Tender Device Identifier Shelf Expiration Date Model / Serial / Lot Stent Omnilink Elite 7.0mm X 59mm Catheter Length 80cm - [id number] Implanted:Qty : 1 on 04/05/2013 by Chas Garcia MD at [facility] CLINICAL MICROBIOLOGIST Explanted:at [facility] CLINICAL MICROBIOLOGIST (Quantity not on file) Stent-Om nilink NYE LAB:VASC DEV [id number] / / [id number] Stent Omnilink Elite 7.0mm X 59mm Catheter Length 80cm - [id number] Implanted:Qty : 1 on 04/05/2013 by Chas Garcia MD at [facility] CLINICAL MICROBIOLOGIST Explanted:at [facility] CLINICAL MICROBIOLOGIST (Quantity not on file) Stent-Om nilink NYE LAB:VASC DEV [id number] / / [id number] Stent Xience Xpedition Drug Eluting 3.0 X 12 - [id number] Implanted:Qty : 1 on 02/18/2013 by Chas Garcia MD at [facility] CLINICAL MICROBIOLOGIST Explanted:at [facility] CLINICAL MICROBIOLOGIST (Quantity not on file) Stent-Xp edition NYE LAB:[employer] DEV [id number] / / [id number] Stent Xience Xpedition Drug Eluting 3.0 X 38 - [id number] Implanted:Qty : 1 on 02/18/2013 by Chas Garcia MD at [facility] CLINICAL MICROBIOLOGIST Explanted:at [facility] CLINICAL MICROBIOLOGIST (Quantity not on file) Stent-Xp edition NYE LAB:[employer] DEV [id number] / / [id number] Stent Vasc 6mm 40mm 80cm Slf Xpd Otw Carito Abst Pro- Implanted:Qty : 1 on 01/23/2021 by Maury Kiran DO Right: Iliac Artery NYE LAB:[employer] DEV [id number] / / [id number] Procedures Procedure Name Priority Date/Time Associated Diagnosis [...] bone density assessment. Study was performed on [employer]. Bone Density: Region BMD T-score Z-score AP [...] PA-C, CCD on 07/12/2019 1:08:00 PM. Kita Molina IM DEXA ORDERABLES Final Resul t * CT [...] coronary artery calcifications againnoted. Kiana Smith APRN [facility] [place] CT ORDERABLES Final R esult from Last 3 Months or Most Recently Relevant to Health Maintenance Insurance HU[employer]NA MEDICARE PPO MR HUMAN MEDICARE PPO MR HUMANA MEDICARE PPO MR Advance Directives For more information, please contact: [phone] * DNR (Latest Code Status on File) Date Activated Date Inactivated Comments 01/21/2021 2:40 PM 01/24/2021 7:25 PM Question Answer Comments This treatment plan has been discussed with and agreed upon by: patient * Full Code Date Activated Date Inactivated Comments 09/23/2017 8:07 PM 09/24/2017 7:39 PM * Full Code Date Activated Date Inactivated Comments 10/01/2014 9:15 AM 10/01/2014 8:24 PM Care Teams Transport Pilot Relationship Specialty Start Date End Date Kita Molina [facility] [address] [id number] PCP - General Family Medicine 02/09/21 Chas Garcia MD [address] [facility] [id number] Physician Internal Medicine-Cardiovascular Disease 04/02/13
--- NOTE | 2024-10-03 10:45 | CT_ITS ---
FINAL REPORT TECHNIQUE: Thin section axial images were obtained from the aortic arch to the skull base after intravenous contrast injection per CTA protocol. Multiplanar reconstruction images were obtained. Exam was performed using dose reduction techniques and the ALARA principle. CLINICAL HISTORY: Carotid Stenosis COMPARISON: None FINDINGS: CTA NECK: Aortic arch: There is a normal three-vessel configuration to the aortic arch. There is aortic calcification and calcification at the origins of the great vessels. There is at least 50% stenosis at the origin of the left subclavian artery. Right carotid artery: The right common carotid artery is patent without stenosis. There is calcification in the proximal right internal carotid artery without significant stenosis. 0% stenosis per NASCET criteria. Left carotid artery: The left common carotid artery is patent without stenosis. There is calcified plaque at the origin of the left common carotid artery. 50% stenosis per NASCET criteria. Vertebral arteries: The vertebral arteries are patent. No significant stenosis. Other soft tissues: No acute abnormality. IMPRESSION: 50% stenosis of the proximal left internal carotid artery per NASCET criteria. No significant right internal carotid artery stenosis. Patent vertebral arteries. Authenticated and ERN
--- NOTE | 2024-10-03 10:45 | CT_ITS ---
FINAL REPORT TECHNIQUE: Thin section axial images were obtained from the lung bases to the pubic symphysis without IV contrast. Oral contrast was administered. Coronal reconstruction images were obtained from the axial data. Exam was performed using dose reduction technique. CLINICAL HISTORY: abd pain, hx of hysterectomy, renita, appendectomy COMPARISON: None. FINDINGS: There are bilateral non obstructing renal stones. No obstructing stones. No hydronephrosis. The gallbladder is absent The remaining unenhanced solid abdominal organs are without acute abnormality. There is no evidence of small bowel obstruction. The appendix is absent. There are scattered diverticula of the distal colon without diverticulitis. The uterus is absent. There is atherosclerotic disease of the abdominal aorta and its branches. Bilateral common iliac artery stents are present. Patency cannot be ascertained. There is no lymphadenopathy or ascites. No acute osseous abnormality is identified. IMPRESSION: Bilateral nonobstructing renal stones. No obstructing stones and no hydronephrosis. No CT evidence of acute intra-abdominal or intrapelvic abnormality on this unenhanced exam. Authenticated and ERN
[2024-10-03 10:59] LABS: Blood Urea Nitrogen 20 mg/dl (7-17); Creatinine,Serum 1.00 mg/dl (0.52-1.04); Estimated Glomerular Filt Rate 54 ml/min (>60); GFR (African American) 65 ML/MIN (>60)
[2024-10-03] MEDS: SODIUM CHLORIDE 0.9% 10ML SYR (RAD ONLY) 10 ML IV (11:52)
[2024-10-03] MEDS: 0.9 % SODIUM CHLORIDE 50 ML VIAL IV (11:52)
[2024-10-03] MEDS: IOPAMIDOL-370 (76%);100ML BOTTLE 80 ML IV (11:52)
== END 2024-10-03 23:59 | disposition home or self-care (01) ==
LOC: RAD 10:37
PROVIDERS: PCP Family Medicine; Visit Provider Physician Assistant
DX: I65.22 Occlusion and stenosis of left carotid artery (principal); N20.0 Calculus of kidney; I73.9 Peripheral vascular disease, unspecified; I25.10 Atherosclerotic heart disease of native coronary artery without angina pectoris; I10 Essential (primary) hypertension; Z90.710 Acquired absence of both cervix and uterus; Z90.49 Acquired absence of other specified parts of digestive tract; Z98.890 Other specified postprocedural states
CPT/HCPCS: 36415; 70498; 74176; 82565; 84520; Q9967

== ENCOUNTER 2024-10-17 11:11 | Outpatient (CLI) | payer MEDICARE, SELFPAY ==
[2024-10-17 16:39] LABS: Hematocrit 44.0 % (37.0-47.0); Hemoglobin 15.1 g/dL (12.2-16.2); Immature Granulocytes % 0.3 %; Mean Corpuscular HGB Conc 34.3 g/dL (31.8-35.4); Mean Corpuscular Hemoglobin 32.2 pg (27.0-31.2); Mean Corpuscular Volume 93.8 fl (81-99); Nucleated Red Blood Cells % 0 %; Platelet Count 389 K/mm3 (142-424); Red Blood Count 4.69 M/mm3 (4.20-5.40); Red Cell Distribution Width-SD 49.7 fL; White Blood Count 14.4 K/mm3 (4.8-10.8)
[2024-10-17 18:28] LABS: Alanine Aminotransferase 12 U/L (12-78); Albumin Level 4.1 g/dl (3.5-5.0); Alkaline Phosphatase 100 U/L (38-126); Anion Gap 13.2 mEq/L (5-15); Aspartate Amino Transferase 21 U/L (14-36); Bilirubin,Direct 0.2 mg/dl (0.0-0.4); Bilirubin,Indirect 0.6 mg/dL (0.0-0.9); Bilirubin,Total 0.8 mg/dl (0.2-1.3); Bilirubin,Unconjugated 0.6 mg/dL (0.0-1.1); Blood Urea Nitrogen 10 mg/dl (7-17); Calcium 9.2 mg/dl (8.4-10.2); Carbon Dioxide 26 mmol/L (22.0-30.0); Chloride 101 mmol/L (98-107); Cholesterol 136 mg/dl (140-200); Creatinine,Serum 0.90 mg/dl (0.52-1.04); Estimated Glomerular Filt Rate 61 ml/min (>60); GFR (African American) 74 ML/MIN (>60); Glucose 94 mg/dl (74-100); HDL Cholesterol 34 mg/dl (40-60); Potassium 4.2 mmoL/L (3.5-5.1); Sodium 136 mmol/L (136-145); Total Protein,Serum 6.8 g/dl (6.3-8.2); Triglycerides 147 mg/dl (30-150)
--- OUTSIDE RECORDS SUMMARY | 2024-10-19 09:33 | XMS_ITS | Clinical Summary ---
Author Organization [facility] Address [address] [place] [address] Phone Care Team Providers Care Verifying Specialist Name Role Phone Outside, Provider Unavailable [phone] Conditions or Problems No information available. Medications No information available. Medications Administered No information available. Allergies, Adverse Reactions, Alerts No information available. Results No information available. Plan of Care No information available. Procedures No information available. Vital Signs No information available. Immunizations No information available. Advance Directives No information available.
--- OUTSIDE RECORDS SUMMARY | 2024-10-19 09:33 | XMS_ITS | Clinical Summary ---
Author Organization 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 Active alendronate (FOSAMAX) 10 mg Oral Tablet [...] ASHD (arteriosclerotic heart disease) 03/01/2013 Atherosclerosis of [place] ar teries of extremities with rest pain, bilateral legs 03/01/2013 Bradycardia 03/01/2013 Non-ST elevation [place] (NSTEMI) 02/18/2013 Claudication of right lower extremity [...] SERIALOGRAM 01/23/2021 IR ABDOMINAL AORTOGRAM SERIALOGRAM 01/23/2021 Maruy Kiran, DO [facility] IR Medical History Medical History Date Comments Crohn's disease (HCC) Hypothyroidism [place] (myocardial infarction) ([facility]) 2013 2 stents placed Hypertension CAD (coronary [...] 75+ series) 09/21/2023 COVID-19 Vaccine ( season) 2024 03/18/2020, 02/19/2020 Influenza Vaccine (#1) 2024 0, [...] Colonography Discontinued Medical Devices Implanted Type Area Service Worker Helper Device Identifier Shelf Expiration Date Model / Serial / Lot Stent Omnilink Elite 7.0mm X 59mm Catheter Length 80cm - [id number] Implanted:Qty : 1 on 04/05/2013 by Chas Garcia MD at [facility] POLICY WRITER SALES Explanted:at [facility] POLICY WRITER SALES (Quantity not on file) Stent-Om nilink NYE LAB:VASC DEV [id number] / / [id number] Stent Omnilink Elite 7.0mm X 59mm Catheter Length 80cm - [id number] Implanted:Qty : 1 on 04/05/2013 by Chas Garcia MD at [facility] POLICY WRITER SALES Explanted:at [facility] POLICY WRITER SALES (Quantity not on file) Stent-Om nilink NYE LAB:VASC DEV [id number] / / [id number] Stent Xience Xpedition Drug Eluting 3.0 X 12 - [id number] Implanted:Qty : 1 on 02/18/2013 by Chas Garcia MD at [facility] POLICY WRITER SALES Explanted:at [facility] POLICY WRITER SALES (Quantity not on file) Stent-Xp edition NYE LAB:[employer] DEV [id number] / / [id number] Stent Xience Xpedition Drug Eluting 3.0 X 38 - [id number] Implanted:Qty : 1 on 02/18/2013 by Chas Garcia MD at [facility] POLICY WRITER SALES Explanted:at [facility] POLICY WRITER SALES (Quantity not on file) Stent-Xp edition NYE LAB:[employer] DEV [id number] / / [id number] Stent Vasc 6mm 40mm 80cm Slf Xpd Otw Carito Abst Pro- Implanted:Qty : 1 on 01/23/2021 by Maury Kiran DO Right: Iliac Artery NYE LAB:[employer] DEV [id number] / / [id number] Procedures Procedure Name Priority Date/Time Associated Diagnosis [...] bone density assessment. Study was performed on [employer]. Bone Density: Region BMD T-score Z-score AP [...] coronary artery calcifications againnoted. Kiana Smith APRN [facility] [place] ORDERABLES Final R esult from Last 3 Months or Most Recently Relevant to Health Maintenance Insurance HUMANA MEDICARE PPO MR HUMAN MEDICARE PPO MR HUMANA MEDICARE PPO MR Advance Directives For more information, please contact: [phone] * DNR (Latest Code Status on File) Date Activated Date Inactivated Comments 01/21/2021 2:40 PM 01/24/2021 7:25 PM Question Answer Comments This treatment plan has been discussed with and agreed upon by: patient * Full Code Date Activated Date Inactivated Comments 09/23/2017 8:07 PM 09/24/2017 7:39 PM * Full Code Date Activated Date Inactivated Comments 10/01/2014 9:15 AM 10/01/2014 8:24 PM Care Teams Refrigeration Lead Relationship Specialty Start Date End Date Kita Molina [facility] [address] [place] [id number] PCP - General Family Medicine 02/09/21 Chas Garcia MD [address] [facility] [place] [id number] Physician Internal Medicine-Cardiovascular Disease 04/02/13
--- OUTSIDE RECORDS SUMMARY | 2024-10-19 09:33 | XMS_ITS | Clinical Summary ---
Author Organization [facility] are Address [address] [place] [address] Phone Care Team Providers Care Dance Choreographer Name Role Phone Burial Vault Deliverer And Installer Unavailable Unavailable Conditions or Problems No information available. Medications No information available. Medications Administered No information available. Allergies, Adverse Reactions, Alerts No information available. Results No information available. Plan of Care No information available. Procedures No information available. Vital Signs No information available. Immunizations No information available. Advance Directives No information available.
== END 2024-10-17 23:59 ==
LOC: LAB.DROPOF 10-19 09:31
PROVIDERS: PCP Physician Assistant; Visit Provider Physician Assistant
DX: Z00.00 Encounter for general adult medical examination without abnormal findings (principal); I25.10 Atherosclerotic heart disease of native coronary artery without angina pectoris; I10 Essential (primary) hypertension; I73.9 Peripheral vascular disease, unspecified; I65.29 Occlusion and stenosis of unspecified carotid artery; Z72.0 Tobacco use; Z91.148 Patient's other noncompliance with medication regimen for other reason
CPT/HCPCS: 80048; 80061; 80076; 85025